=== PATIENT | male | born 1945 | race Caucasian/White ===

== ENCOUNTER 2019-02-08 06:52 | Emergency (ER) | payer MEDICARE, OTHER ==
[2019-02-08] MEDS ORDERED: Potassium Chloride 10 MEQ in Premix Bag 1 BAG IV ONE (06:53)
[2019-02-08] MEDS ORDERED: DEXTROSE ISO OSM IV ONE ×2 (06:53)
[2019-02-08] MEDS ORDERED: EPINEPHrine 1:10,000 1 MG/10 ML Syringe IV ONE (06:53)
[2019-02-08] MEDS ORDERED: AMIODARONE IV ONE ×2 (06:53)
[2019-02-08] MEDS ORDERED: Sodium Bicarbonate 8.4% 50 MEQ/50 ML Syringe IV ONE (06:53)
[2019-02-08] MEDS ORDERED: Lactated Ringers 1,000 ML IV ONE (06:53)
[2019-02-08 07:25] LABS: CHLORIDE,CL 96 mmol/L (101-111); SODIUM,NA 134 mmol/L (135-145)
[2019-02-08 07:26] LABS: ANION GAP 23.3
[2019-02-08] MEDS ORDERED: Potassium Chloride 100 ML ONE (07:28)
--- NOTE | 2019-02-08 08:03 | EDM.PDOC ---
ED HPI GENERAL MEDICAL PROBLEM - General Stated Complaint: CARDIAC ARREST-CODE BLUE Time Seen by Provider: 02/08/19 06:52 Source of Information: Reports: EMS History Limitations: Reports: Other - History of Present Illness INITIAL COMMENTS - FREE TEXT/NARRATIVE: This 73 yo male patient was brought to the ED in full cardiac arrest. According to EMS, the patient had been down about 15 minutes prior to their arrival. EMS reported the patient was initially in PEA. CPR was initiated. The patient was intubated and the patient was given 3 rounds of Epinephrine prior to the arrival in the ED. The patient's reports the patient was watching TV this morning when he took two "strange" breaths and became unresponsive. The patient' s reports the patient was at the [facility] yesterday and had a good report from his doctor. The patient's reports the patient had had an intermittent fever since last Thursday, but no other recent changes in his health. Upon arrival in the ED, PEA was confirmed. CPR was continued. The patient was given an additional 4 rounds of Epinephrine and 1 amp of Sodium Bicarb. At that time, the patient's EKG demonstrated V-tach. The patient was shocked and CPR was again started. An additional round of Epinephrine was given and Amiodarone bolus was started. At pulse check, the patient did have a pulse. An Amiodarone drip was started and an Epinephrine drip was also started. A call was initially placed to [facility] in [place] ([phone]) and [facility] advised that they were on Critical Care diversion. A call was then placed to [facility] in [place]. Prior to speaking with the security solutions architect, the patient again went into cardiac arrest. CPR was again initiated and the patient was given another round of Epinephrine. Again, the patient regained a pulse. A second call was placed to [facility] in [place]. The security solutions architect accepted the patient, but as the conversation was in progress the patient again went into cardiac arrest. The family was spoken to regarding the efforts, progress and prognosis provided from the security solutions architect. The patient's agreed to stop CPR. Onset: Today Onset Date: 02/08/19 Onset Time: 06:20 Duration: Constant Location: Reports: Other Improves with: Reports: None Worsens with: Reports: None - Related Data Allergies Allergy/AdvReac Type Severity Reaction Status Date / Time No Known Allergies Allergy Verified 07/21/18 09:28 Home Meds: Home Meds Acetaminophen/Pamabrom [Cramp Tablet] 1 tab PO ASDIRECTED PRN 07/02/18 [History] Ascorbic Acid [Vitamin C] 1,000 mg PO ASDIRECTED 07/02/18 [History] Cartilage/Collagen/Bor/Hyalur [Move Free Ultra Tablet] 1,500 mg PO BID 07/02/18 [History] Gabapentin [Neurontin] 300 mg PO TID 07/02/18 [History] Glucosamine Sulfate 2KCl [Glucosamine] 2,000 mg PO BID 07/02/18 [History] Insulin Glarg,Human.Rec.Analog [Lantus] 10 units SQ DAILY 07/02/18 [History] Magnesium 250 mg PO BID 07/02/18 [History] Tamsulosin [Flomax] 0.4 mg PO DAILY 07/02/18 [History] Warfarin [Coumadin] 5 mg PO ASDIRECTED 07/02/18 [History] amLODIPine Besylate [Amlodipine Besylate] 10 mg PO DAILY 07/02/18 [History] atorvaSTATin [Lipitor] 40 mg PO DAILY 07/02/18 [History] glipiZIDE [Glucotrol] 20 mg PO BID 07/02/18 [History] hydrALAZINE HCl [Hydralazine HCl] 25 mg PO TID 07/02/18 [History] hydrOXYzine HCl [hydrOXYzine] 50 mg PO TID 07/02/18 [History] Past Medical History HEENT History: Reports: Impaired Vision Cardiovascular History: Reports: Heart Failure, High Cholesterol, Hypertension, Other (See Below) (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 ED EXAM, CPR - Physical Exam Exam: See Below Limited By: Unresponsive (With CPR in progress) General Appearance: Severe Distress, Other (CPR in progress) Eye Exam: Bilateral Eye: Other (Pupils were fixed and dialated) Ears: Normal External Exam Nose: Normal Inspection Throat/Mouth: Other (ET tube inplace (secured by device)) Head: Atraumatic Respiratory Chest: Other (Lung sounds were clear and equal bilaterally with ventilation supported by BVM) Cardiovascular: Other (Paced PEA with episodes of V-tac and a paced profusing rhythm (As described above)) (Male) Exam: Deferred Extremities: No Pedal Edema, Mottled Neurological: Unresponsive Skin Exam: Warm, Dry, Intact, No Rash, Pallor Course - Orders/Labs/Meds Orders: Active Orders 24 hr Category Date Time Status Chest 1V Frontal [CR] Stat Exams 02/08/19 06:55 Ordered D-DIMER QUANTITATIVE [COAG] Stat Lab 02/08/19 06:57 Received UA W/MICROSCOPIC [URIN] Stat Lab 02/08/19 06:57 Results Labs: Laboratory Tests 02/08/19 02/08/19 02/08/19 Range/Units 06:57 06:57 06:57 WBC 11.0 H (5.0-10.0) 10^3/uL RBC 3.65 L (4.6-6.2) 10^6/uL Hgb 11.0 L (14.0-18.0) g/dL Hct 34.4 L (40.0-54.0) % MCV 94.2 (80-100) fL MCH 30.1 (27.0-34.0) pg MCHC 32.0 L (33.0-35.0) g/dL Plt Count 142 L (150-450) 10^3/uL Neut % (Auto) 70.2 (42.2-75.2) % Lymph % (Auto) 20.2 L (20.5-50.1) % [place] % (Auto) 8.6 H (2-8) % Eos % (Auto) 0.5 L (1.0-3.0) % Baso % (Auto) 0.5 (0.0-1.0) % PT 22.4 H (9.0-12.0) SEC INR 2.3 H (0.9-1.2) APTT 33.3 (22.0-34.0) SEC Sodium 134 L (135-145) mmol/L Potassium 2.3 L* (3.6-5.0) mmol/L Chloride 96 L (101-111) mmol/L Carbon Dioxide 17.0 L (21.0-31.0) mmol/L Anion Gap 23.3 BUN 65 H D (7-18) mg/dL Creatinine 3.1 H D (0.6-1.3) mg/dL Est Cr Clr Drug Dosing TNP Estimated GFR (MDRD) 20 BUN/Creatinine Ratio 20.96 Glucose 367 H (74-105) mg/dL Calcium 8.6 (8.4-10.2) mg/dl Total Bilirubin 1.8 H (0.2-1.0) mg/dL AST 41 (10-42) IU/L ALT 21 (10-60) IU/L Alkaline Phosphatase 78 (42-121) IU/L Troponin I 0.37 H* (0.00-0.02) ng/ml B-Natriuretic Peptide (0-100) pg/ml Total Protein 7.2 (6.7-8.2) g/dl Albumin 3.4 (3.2-5.5) g/dl Globulin 3.8 Albumin/Globulin Ratio 0.89 Urine Color (YELLOW) Urine Appearance (CLEAR) Urine pH (5.0-9.0) Ur Specific [place] (1.005-1.030) Urine Protein (NEGATIVE) Urine Glucose (UA) (NEGATIVE) Urine Ketones (NEGATIVE) Urine Occult Blood (NEGATIVE) Urine Nitrite (NEGATIVE) Urine Bilirubin (NEGATIVE) Urine Urobilinogen (0.2-1.0) mg/dL Ur Leukocyte Esterase (NEGATIVE) Urine Opiates Screen (NEGATIVE) Ur Oxycodone Screen (NEGATIVE) Urine Methadone Screen (NEGATIVE) Ur Barbiturates Screen (NEGATIVE) U Tricyclic Antidepress (NEGATIVE) Ur Phencyclidine Scrn (NEGATIVE) Ur Amphetamine Screen (NEGATIVE) U Methamphetamines Scrn (NEGATIVE) Urine MDMA Screen (NEGATIVE) U Benzodiazepines Scrn (NEGATIVE) Urine Cocaine Screen (NEGATIVE) U Marijuana (THC) Screen (NEGATIVE) 02/08/19 02/08/19 02/08/19 Range/Units 06:57 06:57 06:57 WBC (5.0-10.0) 10^3/uL RBC (4.6-6.2) 10^6/uL Hgb (14.0-18.0) g/dL Hct (40.0-54.0) % MCV (80-100) fL MCH (27.0-34.0) pg MCHC (33.0-35.0) g/dL Plt Count (150-450) 10^3/uL Neut % (Auto) (42.2-75.2) % Lymph % (Auto) (20.5-50.1) % [place] % (Auto) (2-8) % Eos % (Auto) (1.0-3.0) % Baso % (Auto) (0.0-1.0) % PT (9.0-12.0) SEC INR (0.9-1.2) APTT (22.0-34.0) SEC Sodium (135-145) mmol/L Potassium (3.6-5.0) mmol/L Chloride (101-111) mmol/L Carbon Dioxide (21.0-31.0) mmol/L Anion Gap BUN (7-18) mg/dL Creatinine (0.6-1.3) mg/dL Est Cr Clr Drug Dosing Estimated GFR (MDRD) BUN/Creatinine Ratio Glucose (74-105) mg/dL Calcium (8.4-10.2) mg/dl Total Bilirubin (0.2-1.0) mg/dL AST (10-42) IU/L ALT (10-60) IU/L Alkaline Phosphatase (42-121) IU/L Troponin I (0.00-0.02) ng/ml B-Natriuretic Peptide 1320 H (0-100) pg/ml Total Protein (6.7-8.2) g/dl Albumin (3.2-5.5) g/dl Globulin Albumin/Globulin Ratio Urine Color Yellow (YELLOW) Urine Appearance Clear (CLEAR) Urine pH 5.0 (5.0-9.0) Ur Specific [place] 1.015 (1.005-1.030) Urine Protein 100 H (NEGATIVE) Urine Glucose (UA) Negative (NEGATIVE) Urine Ketones Negative (NEGATIVE) Urine Occult Blood Small H (NEGATIVE) Urine Nitrite Negative (NEGATIVE) Urine Bilirubin Negative (NEGATIVE) Urine Urobilinogen 0.2 (0.2-1.0) mg/dL Ur Leukocyte Esterase Negative (NEGATIVE) Urine Opiates Screen Negative (NEGATIVE) Ur Oxycodone Screen Negative (NEGATIVE) Urine Methadone Screen Negative (NEGATIVE) Ur Barbiturates Screen Negative (NEGATIVE) U Tricyclic Antidepress Negative (NEGATIVE) Ur Phencyclidine Scrn Negative (NEGATIVE) Ur Amphetamine Screen Negative (NEGATIVE) U Methamphetamines Scrn Negative (NEGATIVE) Urine MDMA Screen Negative (NEGATIVE) U Benzodiazepines Scrn Negative (NEGATIVE) Urine Cocaine Screen Negative (NEGATIVE) U Marijuana (THC) Screen Negative (NEGATIVE) Meds: Medications Discontinued Medications Generic Name Dose Route Start Last Admin Trade Name Freq PRN Reason Stop Dose Admin Potassium Chloride Confirm 02/08/19 07:28 Kcl 10 Meq In Water 100 Ml Administered 02/08/19 07:29 Dose 100 mls @ as directed .ROUTE .STK-MED ONE Departure - Departure Time of Disposition: 07:38 Disposition: 20 Condition: Critical Clinical Impression: Cardiac arrest - Discharge Information *PRESCRIPTION DRUG MONITORING PROGRAM REVIEWED*: Not Applicable *COPY OF PRESCRIPTION DRUG MONITORING REPORT IN PATIENT GLADYS: Not Applicable - My Orders Last 24 Hours: My Active Orders 02/08/19 06:55 Chest 1V Frontal [CR] Stat 02/08/19 06:57 D-DIMER QUANTITATIVE [COAG] Stat UA W/MICROSCOPIC [URIN] Stat - Assessment/Plan Last 24 Hours: My Active Orders 02/08/19 06:55 Chest 1V Frontal [CR] Stat 02/08/19 06:57 D-DIMER QUANTITATIVE [COAG] Stat UA W/MICROSCOPIC [URIN] Stat
--- NOTE | 2019-02-08 08:25 | CR ---
Clinical history: 73-year-old diabetic male in emergency department (CODE BLUE). Interpretation: AP supine portable chest film confirms midline tracheal airway with the tip positioned proximal to mehul. Sternotomy wires, external monitor car operator leads and spine board artifacts. Cardiomegaly unchanged since upright AP portable film 21 July 2018. Pulmonary venous congestion. No new alveolar edema or dependent effusion. No new lung mass, hilar lymphadenopathy or focal lobar consolidation IE no infiltrate, atelectasis or collapse. No pneumothorax or pneumomediastinum. CONCLUSION: No acute new cardiopulmonary abnormality since 21 July 2018.
== END 2019-02-08 08:32 | disposition expired ==
LOC: DL.ED 06:52
DX: I46.9 Cardiac arrest, cause unspecified (principal); E78.00 Pure hypercholesterolemia, unspecified; I11.0 Hypertensive heart disease with heart failure; E11.9 Type 2 diabetes mellitus without complications; I50.9 Heart failure, unspecified; Z79.899 Other long term (current) drug therapy; Z79.01 Long term (current) use of anticoagulants
CPT/HCPCS: 36415; 51702; 71045; 80053; 80305; 81001; 83880; 84484; 85025; 85379; 85610; 85730; 92950; 99291; A4217; J0171; J0282; J3480; J7050; J7120